=== PATIENT | male | born 1945 | race Caucasian/White ===

== ENCOUNTER 2022-04-13 07:34 | Emergency (ER) | payer MEDICARE, MEDICAID ==
[~2022-04-13] VITALS: Ht 175.3 cm; Wt 83.6 kg
[~2022-04-13 07:34] MED LIST: CLOP75TA33 PO; FURO-150 PO; GLIM2TAB6 PO; INSU100C4 SQ; LANTUS SQ; LOP25T PO; LOSA25TA96 PO; SIMV-342 PO
[2022-04-13 08:56] LABS: CLARITY,URINE TURBID (Clear); COLOR,URINE RED (Yellow)
[2022-04-13 08:59] LABS: UA COLLECTION TYPE FOLEY CATH
[2022-04-13 09:01] LABS: RBC,URINE TNTC /HPF (0-2); WBC,URINE 50-100 /HPF (0-4)
[2022-04-13 09:02] LABS: BACTERIA,URINE 2+ /HPF (Neg); SQUAMOUS EPITHELIAL CELL,UR FEW /LPF (FEW)
[2022-04-13 09:06] LABS: BASOPHILS % (AUTO) 0.7 % (0-1); EOSINOPHILS # (AUTO) 0.3 X10'3 (0-0.9); EOSINOPHILS % (AUTO) 5.4 % (0-6); HEMOGLOBIN 12.7 g/dl (14.0-17.9); LYMPHOCYTES % (AUTO) 16.3 % (21-51); MEAN CORPUSCULAR HEMOGLOBIN 28.5 PG (27.0-31.0); MEAN CORPUSCULAR HGB CONC 33.6 g/dL (33.0-36.5); MEAN CORPUSCULAR VOLUME 84.9 FL (78-98); MONOCYTES # (AUTO) 0.9 X10'3 (0-0.9); MONOCYTES % (AUTO) 15.2 % (2-12); NEUTROPHILS # (AUTO) 3.8 X10'3 (1.8-7.7); NEUTROPHILS % (AUTO) 62.4 % (42-75); PLATELET COUNT 192 X10'3 (140-440); RED BLOOD COUNT 4.47 X10'6 (4.70-6.10); RED CELL DISTRIBUTION WIDTH 14.2 % (11.5-14.5); WHITE BLOOD COUNT 6.1 X10'3 (4.5-11.0)
[2022-04-13 09:21] LABS: ALBUMIN 3.4 G/DL (3.4-5.0); ASPARTATE AMINO TRANSFERASE 9 U/L (10-37)
[2022-04-13 09:28] LABS: ALANINE AMINOTRANSFERASE 6 U/L (12-78); ALBUMIN/GLOBULIN RATIO 0.8 (1.1-1.5); ALKALINE PHOSPHATASE 50 IU/L (46-116); ANION GAP 7 (8-16); BILIRUBIN,TOTAL 0.2 MG/DL (0.1-1.0); BLOOD UREA NITROGEN 23 MG/DL (7-18); BUN/CREATININE RATIO 13.1 (5.4-32.0); CALCIUM 9.1 MG/DL (8.5-10.1); CHLORIDE 99 MMOL/L (99-107); CREATININE 1.76 MG/DL (0.60-1.10); GLUCOSE 216 MG/DL (70-104); POTASSIUM 5.1 MMOL/L (3.5-5.1); SODIUM 133 MMOL/L (135-145); TOTAL CARBON DIOXIDE 26.9 MMOL/L (24-32); TOTAL PROTEIN 7.9 G/DL (6.4-8.2); eGFR 38 ML/MIN
--- NOTE | 2022-04-13 09:48 | NUR ---
pt in pain, reported to dr. Camara to bedside soon.
[2022-04-13] MEDS ORDERED: sulfamethoxazole/trimethoprim DS (800/160mg) tablet PO ONE (10:55)
[2022-04-13] MEDS ORDERED: CEFD300C3 PO (10:56)
[2022-04-13] MEDS ORDERED: CefTRIAXone/D5W-Rocephin 1gm 50 ML IV ONE (11:00)
[2022-04-13 12:00] VITALS: BP 103/68
== END 2022-04-13 12:38 | disposition home or self-care (01) ==
LOC: ER 07:34
DX: N39.0 Urinary tract infection, site not specified (principal); R33.9 Retention of urine, unspecified; I11.0 Hypertensive heart disease with heart failure; E11.9 Type 2 diabetes mellitus without complications; Z79.1 Long term (current) use of non-steroidal anti-inflammatories (NSAID); Z79.899 Other long term (current) drug therapy; Z79.84 Long term (current) use of oral hypoglycemic drugs
CPT/HCPCS: 36415; 80053; 81001; 85025; 87077; 87088; 96365; 99284; J0696; 87186

== ENCOUNTER 2022-05-18 04:33 | Emergency (ER) | payer MEDICARE, MEDICAID ==
[~2022-05-18] VITALS: Ht 175.3 cm; Wt 104.5 kg
[~2022-05-18 04:33] MED LIST changes: +ASPI-1071 PO; +ATOR40TA PO; +CARV6.253 PO; -CLOP75TA33 PO; +CLOP75TA34 PO; +DOXY-224 PO; +EMPA10TA PO; +FENO54TA PO; +FLO0.4C PO; -FURO-150 PO; +FURO20TA4 PO; +GABA-530 PO; -GLIM2TAB6 PO; -INSU100C4 SQ; -LANTUS SQ; -LOP25T PO; -LOSA25TA96 PO; +METF-438 PO; +SACU1TAB PO; +SENN-263 PO; -SIMV-342 PO; +SPIR25TA5 PO
[2022-05-18 05:06] VITALS: BP 143/94
[2022-05-18] MEDS ORDERED: LIDOcaine 2% 10ml TOPICAL JELLY (Urojet) TP ONE (05:15)
== END 2022-05-18 08:30 | disposition home or self-care (01) ==
LOC: ER 06:41
DX: Z46.6 Encounter for fitting and adjustment of urinary device (principal); R33.9 Retention of urine, unspecified; I25.10 Atherosclerotic heart disease of native coronary artery without angina pectoris; I11.0 Hypertensive heart disease with heart failure; I50.9 Heart failure, unspecified; I25.2 Old myocardial infarction; E11.9 Type 2 diabetes mellitus without complications; Z85.9 Personal history of malignant neoplasm, unspecified; Z87.01 Personal history of pneumonia (recurrent); Z79.82 Long term (current) use of aspirin; Z79.2 Long term (current) use of antibiotics; Z79.899 Other long term (current) drug therapy
CPT/HCPCS: 99284

== ENCOUNTER 2022-05-20 14:23 | Emergency (ER) | payer MEDICARE, MEDICAID ==
[~2022-05-20] VITALS: Ht 175.3 cm; Wt 63.6 kg
[2022-05-20] MEDS ORDERED: FLO0.4C PO (15:13)
[2022-05-20 15:19] VITALS: BP 125/80
--- NOTE | 2022-05-20 15:30 | NUR ---
Upon assessment, pt reporting urinary retention. Orders to insert rondon catheter. RN inserted indwelling rondon catheter without difficulty. Initially, urine was yellow and cloudy. Shortly thereafter, blood was noted in rondon bag. RN notified Dr. Smith. presented to bedside for assessment: per , RN to flush catheter. RN flushed until rondon drained clear.
[2022-05-20 16:13] LABS: CLARITY,URINE SLIGHTLY CLOUDY (Clear); COLOR,URINE YELLOW (Yellow); GLUCOSE, URINE NEGATIVE (Neg); KETONES,URINE NEGATIVE (Neg); LEUKOCYTE ESTERASE ,URINE MODERATE (Neg); NITRITES, URINE NEGATIVE (Neg); OCCULT BLOOD,URINE SMALL (Neg); PH,URINE 5.5 (4.8-8.0); PROTEIN,URINE 100 mg/dl (Neg); UROBILINOGEN,URINE 0.2 E.U/dL (0.2-1.0)
[2022-05-20 16:18] LABS: UA COLLECTION TYPE FOLEY CATH
[2022-05-20 16:34] LABS: SQUAMOUS EPITHELIAL CELL,UR FEW /LPF (FEW)
[2022-05-20 16:37] LABS: BACTERIA,URINE FEW /HPF (Neg); WBC,URINE TNTC /HPF (0-4)
[2022-05-20 16:38] LABS: YEAST MANY /HPF (NEGATIVE)
[2022-05-20] MEDS ORDERED: CEPH-585 PO (17:12)
== END 2022-05-20 17:07 | disposition home or self-care (01) ==
LOC: ER 14:24
DX: R33.9 Retention of urine, unspecified (principal); I11.0 Hypertensive heart disease with heart failure; I50.9 Heart failure, unspecified; E11.9 Type 2 diabetes mellitus without complications
CPT/HCPCS: 51702; 81001; 87088; 99284